=== PATIENT | male | born 1985 | race Two or more races ===

== ENCOUNTER 2023-10-19 19:19 | Emergency (ER) | payer MEDICAID ==
[~2023-10-19] VITALS: Ht 175.3 cm; Wt 70.3 kg
[2023-10-19 22:05] VITALS: TEMP 98.1
[2023-10-19] MEDS ORDERED: AMOX-430 PO (23:56)
[2023-10-20] MEDS ORDERED: AMOX/CLAVULANATE 875 MG TABLET PO ONE
[2023-10-20 01:28] VITALS: BP 105/81; O2SAT 99
== END 2023-10-20 01:29 | disposition home or self-care (01) ==
LOC: ER 19:22
DX: S01.511A Laceration without foreign body of lip, initial encounter (principal); F41.9 Anxiety disorder, unspecified; F32.A Depression, unspecified; W54.0XXA Bitten by dog, initial encounter; Y93.89 Activity, other specified; Y92.89 Other specified places as the place of occurrence of the external cause; Y99.8 Other external cause status
CPT/HCPCS: 12013; 99283; A6403